=== PATIENT | male | born 1985 | race Caucasian/White ===

== ENCOUNTER 2020-02-20 22:58 | Emergency (ER) | payer OTHER ==
[~2020-02-20] VITALS: Ht 182.9 cm; Wt 83.9 kg
[2020-02-20] MEDS ORDERED: HYDROCODON-ACE1 EAC8 PO ×2 (23:50→23:57)
[2020-02-21 00:15] VITALS: BP 138/78
== END 2020-02-21 00:17 | disposition home or self-care (01) ==
LOC: M.ERS 22:58
DX: S93.491A Sprain of other ligament of right ankle, initial encounter (principal); X50.1XXA Overexertion from prolonged static or awkward postures, initial encounter; Y93.67 Activity, basketball; Y92.89 Other specified places as the place of occurrence of the external cause; Y99.8 Other external cause status

== ENCOUNTER 2021-03-06 11:49 | Emergency (ER) | payer OTHER ==
[~2021-03-06] VITALS: Ht 177.8 cm; Wt 83.9 kg
[~2021-03-06 11:49] MED LIST: HYDROCODON-ACE1 EAC8 PO
[2021-03-06 13:27] LABS: INFLUENZA A ANTIGEN Negative (Negative); INFLUENZA B ANTIGEN Negative (Negative)
[2021-03-06 14:19] LABS: ABSOLUTE BASOPHILS 0.1 thou/uL (0.0-0.2); ABSOLUTE EOSINOPHILS 0.5 thou/uL (0.0-0.7); ABSOLUTE LYMPHOCYTES 2.3 thou/uL (0.8-5.3); ABSOLUTE MONOCYTES 0.8 thou/uL (0.0-1.2); ABSOLUTE NEUTROPHILS 13.2 thou/uL (1.6-8.1); BASOPHILS 0.6 %; EOSINOPHILS 2.9 %; HEMATOCRIT 45.5 % (42.0-52.0); HEMOGLOBIN 15.6 gm/dL (14.0-18.0); LYMPHOCYTES 13.4 %; MCH 32.7 pg (26.0-34.0); MCHC 34.2 g/dL (28.0-37.0); MCV 95.6 fL (80.0-100.0); MONOCYTES 4.6 %; MPV 8.9 fl. (7.2-11.1); NUCLEATED RBCS 0 /100WBC; PLATELET COUNT* 237 thou/uL (150-400); POLYS 78.5 %; RBC 4.76 mil/uL (4.50-6.00); RDW-CV 14.4 % (10.5-14.5); WBC 16.8 thou/uL (4.0-11.0)
[2021-03-06 14:29] LABS: CALCIUM 9.1 mg/dL (8.5-10.1); CREATININE 1.1 mg/dL (0.6-1.3); POTASSIUM 4.2 mmol/L (3.5-5.1)
[2021-03-06 14:39] LABS: ALBUMIN 3.8 g/dL (3.4-5.0); TOTAL BILIRUBIN 0.3 mg/dL (<0.1-1.0); TOTAL PROTEIN 7.2 g/dL (6.4-8.2)
[2021-03-06] MEDS ORDERED: PROMETH-CODEIN 65 ML PO (15:39)
[2021-03-06] MEDS ORDERED: AUGMENTIN 875-1 EACH PO (15:39)
[2021-03-06] MEDS ORDERED: VENTOLIN HFA 1818 GM INH (15:39)
[2021-03-06 15:53] VITALS: BP 135/78
--- NOTE | 2021-03-07 14:13 | EKG ---
[place] [address] ELECTROCARDIOGRAM REPORT Name: LATRICE PARR Room: [facility]#: [id number] Admission: 03/06/21 Attend Phys: Discharge: 03/06/21 Date of : 83 Date of Service: 03/06/21 [facility] Report #: [id number] THIS REPORT FOR: //name// [facility] ED Test Date: 2021-03-06 Test Time: 12:57:32 Pat Name: LATRICE PARR Department: Room: Gender: Financial Agent: TDS : 1985 Requested By: Melissa Dawson Order Number: [id number] MD: Napoleon Montano Measurements Intervals [place] Rate: 75 P: 56 MD: 105 QRS: 59 QRSD: 83 T: 53 QT: 374 QTc: 418 Interpretive Statements Sinus rhythm Short MD interval ST elev, probable normal early repol pattern Baseline wander in lead(s) II,III,aVF No previous ECG available for comparison Electronically Signed On 03-07-2021 14:13:35 CDT by Napoleon Montano [email or web address] <ELECTRONICALLY SIGNED> By: Napoleon Montano MD, FACC 03/07/21 1413 1257 [id number] Napoleon Montano MD, FAC /EPI
== END 2021-03-06 15:53 | disposition home or self-care (01) ==
LOC: M.ERS 11:49
PROVIDERS: Nurse Practitioner Family
DX: J20.9 Acute bronchitis, unspecified (principal); R07.89 Other chest pain; Z20.822 Contact with and (suspected) exposure to COVID-19